=== PATIENT | male | born 2005 | race Hispanic/Latino ===

== ENCOUNTER 2023-08-18 10:17 | Emergency (ER) | payer OTHER, SELFPAY ==
[2023-08-18 10:18] VITALS: BP 138/62; PULSE 64; RESP 16; TEMP 37.2; O2SAT 100
[2023-08-18 12:09] LABS: Basophils Percent Auto 0.4 % (0.2-1.2); Eosinophils Absolute Auto 0.1 K/mm3 (0-0.3); Hematocrit 44.5 % (42.0-52.0); Hemoglobin 14.8 g/dL (14.0-18.0); Immature Granulocyte Absolute 0.04 K/mm3 (0.00-0.031); Immature Granulocyte Percent A 0.4 % (0-0.5); Lymphocytes Absolute Auto 2.16 K/mm3 (0.9-3.2); Lymphocytes Percent Auto 19.9 % (18.3-44.2); Mean Corpuscular HGB Conc 33.3 g/dl (32-36); Mean Corpuscular Hemoglobin 31.2 pg (26-34); Mean Corpuscular Volume 93.9 fl (80-100); Mean Platelet Volume 9.2 fl (7.4-10.4); Monocytes Absolute Auto 0.6 K/mm3 (0.1-0.6); Monocytes Percent Auto 5.7 % (2.6-8.5); Neutrophils Absolute Auto 7.9 K/mm3 (1.3-6.7); Neutrophils Percent Auto 72.6 % (45.5-73.1); Platelet Count Result 286 k/mm3 (150-375); Red Blood Count 4.74 M/mm3 (4.6-6.20); Red Cell Distribution Width 12.4 % (11.5-14.5); White Blood Count 10.8 K/mm3 (4.5-10.0)
[2023-08-18 12:19] LABS: Alanine Aminotransferase 38 U/L (6-50); Albumin Level 4.8 g/dL (3.7-5.6); Alkaline Phosphatase 94 U/L (58-237); Anion Gap 8 mmol/L (8-16); Aspartate Amino Transferase 48 U/L (17-59); Bilirubin,Total 0.4 mg/dL (0.2-1.3); Blood Urea Nitrogen 16 mg/dL (8-21); Calcium 9.4 mg/dL (8.9-10.7); Carbon Dioxide 27 mmol/L (22-30); Chloride 105 mmol/L (98-107); Estimated CRCL calculation 164 ml/min; Estimated Glomerular Filt Rate > 60; Glucose 101 mg/dL (65-110); Potassium 4.4 mmol/L (3.4-5.0); Sodium 140 mmol/L (134-143)
[2023-08-18 12:26] LABS: Prothrombin Time 13.6 Seconds (11.1-14.7)
[2023-08-18 12:27] LABS: Partial Thromboplastin Time 33.1 SECONDS (22.3-36.8)
--- NOTE | 2023-08-18 13:24 | ED.GIBLEED ---
HPI - GI Bleed General Chief complaint: GI Bleed Stated complaint: BLOOD IN STOOL,FATIGUE Time Seen by Provider: 08/18/23 12:05 History of Present Illness HPI Narrative: Patient is a 17-year-old male who presents ER with reports of blood in stool. Reports it has been occurring intermittently for the last year. Pre occurred over last 2 days. When he has bowel movement he will feel pain his rectum and there will be blood dripping into the toilet. He denies constipation. In no fevers or chills or sweats. No family history of inflammatory bowel disease. Stool is not dark black and has no epigastric discomfort. Related Data Allergies Allergy/AdvReac Type Severity Reaction Status Date / Time No Known Allergies Allergy Unverified 10/07/17 16:02 Review of Systems Constitutional: Constitutional: Reports no additional constitutional complaints ENT: Reports system reviewed and no additional complaints, except as documented Cardiovascular: Cardiovascular: Reports no additional cardiovascular complaints Respiratory: Respiratory: Reports no additional respiratory complaints Gastrointestinal: Gastrointestinal: Denies abdominal pain, Denies constipation, Denies nausea and Denies vomiting Comments: Rectal bleeding PMFSH Past Medical History Medical History (Updated 08/18/23 @ 13:28 by Odell Nicole MD) Hidradenitis suppurativa Exam Narrative: GENERAL: Well-appearing, well-nourished, and in no acute distress. HEAD: Normocephalic, atraumatic. CHEST: Clear to auscultation. No respiratory distress. HEART: Regular rate and rhythm. Normal peripheral pulses. Rectal: External rectum without hemorrhoids are large fissures. Digital rectal exam without palpable mass. Family Hemoccult-negative stool. EXTREMITIES: Normal range of motion. No edema. SKIN: Warm, dry, no rash. NEURO: Alert and oriented x3. PSYCH: Normal mood and affect. Course Course Emergency Course: Patient resting comfortably. No drop in hemoglobin. Faintly occult positive. Suspect lower bleeding given his symptoms. Recommend follow-up her PCP likely need for outpatient GI evaluation. Recommend stool softener since he has pain right was bleeding begins. Vital Signs Vital signs: Vital Signs Temperature 98.9 F 08/18/23 10:18 Pulse Rate 64 08/18/23 10:18 Respiratory Rate 16 08/18/23 10:18 Blood Pressure 138/62 08/18/23 10:18 Pulse Oximetry 100 08/18/23 10:18 Oxygen Delivery Room Air 08/18/23 10:18 Temperature 98.9 F 08/18/23 10:18 Pulse Rate 64 08/18/23 10:18 Respiratory Rate 16 08/18/23 10:18 Blood Pressure 138/62 08/18/23 10:18 Pulse Oximetry 100 08/18/23 10:18 Oxygen Delivery Room Air 08/18/23 10:18 MDM - GI Bleed Lab Data 08/18/23 12:04 08/18/23 12:04 Labs: Lab Results 08/18/23 Range/Units 12:04 WBC 10.8 H (4.5-10.0) K/mm3 RBC 4.74 (4.6-6.20) M/mm3 Hgb 14.8 (14.0-18.0) g/dL Hct 44.5 (42.0-52.0) % MCV 93.9 (80-100) fl MCH 31.2 (26-34) pg MCHC 33.3 (32-36) g/dl RDW 12.4 (11.5-14.5) % Plt Count 286 (150-375) k/mm3 MPV 9.2 (7.4-10.4) fl Immature Gran % (Auto) 0.4 (0-0.5) % Neut % (Auto) 72.6 (45.5-73.1) % Lymph % (Auto) 19.9 (18.3-44.2) % Motley % (Auto) 5.7 (2.6-8.5) % Eos % (Auto) 1.0 (0-4.4) % Baso % (Auto) 0.4 (0.2-1.2) % Lymph # (Auto) 2.16 (0.9-3.2) K/mm3 Motley # (Auto) 0.6 (0.1-0.6) K/mm3 Eos # (Auto) 0.1 (0-0.3) K/mm3 Baso # (Auto) 0.0 (0.0-0.1) K/mm3 Abs Immat Gran (auto) 0.04 H (0.00-0.031) K/mm3 Absolute Neuts (auto) 7.9 H (1.3-6.7) K/mm3 Absolute Nucleated RBC 0.0 (0.0-0.012) K/mm3 Nucleated RBC % 0.0 (0.0-0.2) % PT 13.6 (11.1-14.7) Seconds INR 1.0 APTT 33.1 (22.3-36.8) SECONDS Sodium 140 (134-143) mmol/L Potassium 4.4 (3.4-5.0) mmol/L Chloride 105 (98-107) mmol/L Carbon Dioxide 27 (22-30) mmol/L Anion Gap 8 (8-16) mmol/L BUN 16 (8-21
[2023-08-18 13:39] VITALS: BP 125/76; PULSE 60; RESP 16; O2SAT 99
== END 2023-08-18 13:40 | disposition home or self-care (01) ==
PROVIDERS: Student in an Organized Health Care Education/Training Program; Emergency Provider Emergency Medicine
DX: K62.5 Hemorrhage of anus and rectum (principal)
CPT/HCPCS: 36415; 80053; 85025; 85610; 85730; 86850; 86900; 86901; 99284